=== PATIENT | male | born 1965 ===

== ENCOUNTER → 2017-09-27 18:26 | Outpatient (CLI) | payer OTHER ==
[~2017-09-27] VITALS: Ht 152.4 cm; Wt 131.5 kg
[~2017-09-27 18:26] MED LIST: LEVSIN0.125 MG PO; PEPCID40 MG PO; PRILOSEC10 M2; SYMBICORT 16010.2 GM
== END | disposition home or self-care (01) ==
LOC: PPHC 18:26
DX: R05 Cough (principal); R09.81 Nasal congestion; R50.9 Fever, unspecified

== ENCOUNTER → 2021-04-28 11:43 | Outpatient (CLI) | payer OTHER ==
[~2021-04-28 11:43] MED LIST changes: +ATORVASTATIN CA10 MG PO; +COZAAR25 MG; +GLUMETZA1000 MG PO; +PROAIR RESPICL90 MCG; +SINGULAIR4 M1
== END | disposition home or self-care (01) ==
LOC: RAD 11:43
PROVIDERS: ATTEND Radiology Diagnostic Radiology
DX: M25.531 Pain in right wrist (principal); R10.84 Generalized abdominal pain